=== PATIENT | male | born 1945 | race Caucasian/White ===

== ENCOUNTER 2016-09-26 03:41 | Emergency (ER) | payer MEDICARE ==
[~2016-09-26] VITALS: Ht 182.9 cm; Wt 90.9 kg
[~2016-09-26 03:41] MED LIST: ACET1TAB12 PO; ASP81TEC PO; ATOR20TA PO; CLOP75TA28 PO; LISI-610 PO; METO-272 PO
[2016-09-26 03:47] VITALS: BP 187/109; PULSE 74; RESP 20; O2SAT 100
--- NOTE | 2016-09-26 04:06 | ED.REPORT ---
HPI-Sore Throat ONLY HPI/PE done Sep 26, 2016 ED Provider: Doc,Ed MD The patient is a 70 year old male who presents to the ED complaining of throat swelling which woke him from sleep 30 minutes [employer]. He describes the feeling as if his uvula was swollen and blocking his throat. He takes Lisinopril for hypertension. Associated symptom of tongue swelling. Since onset he reports that his mouth has become dry. He recently finished a course of antibiotics. He denies any other symptoms at this time. Nursing Notes Stated Complaint: SORE THROAT Chief Complaint: General Complaint Nursing Notes Reviewed: Yes Allergies: Coded Allergies: Penicillins (Verified Allergy, Unknown, 09/26/16) Scheduled Aspirin-Expunged Drug, Do Not Renew! (Aspirin EC-Expunged Drug, Do Not Renew!) 81 Mg Tablet 81 MG PO DAILY Atorvastatin (Lipitor) 20 Mg Tablet 40 MG PO HS Clopidogrel (Clopidogrel) 75 Mg Tablet 75 MG PO DAILY Lisinopril (Zestril) 10 Mg Tablet 10 MG PO BID Metoprolol Succinate ER (Metoprolol Succinate ER) 50 Mg Tab.er.24h 25 MG PO DAILY Prednisone (PredniSONE) 20 Mg Tablet 20 MG PO TID Scheduled PRN Acetaminophen/Codeine 300-30mg (Tylenol/Codeine #3) 1 Each Tablet 1 EACH PO every 4-6 hours prn PRN PRN For Pain General Time Seen by MD: 04:05 Chief Complaint Other (Throat/tongue) Hx Obtained From: Patient, Spouse Arrived By: Walk-in Onset Occurred: 16 - 30 minutes ago Symptom Duration: Since onset Severity: Current: No pain currently Severity: Maximum: No pain Recent Healthcare: No recent doctor visit, No recent hospitalization Similar Sx Previous: No Past Medical History Past Medical History None reported Past Surgical History None reported Smoking History Never Smoker Social History Alcohol Use: "Social" Drug Use: Denies drug use Review of Systems Constitutional: Denies: Chills, Fever Ears / Nose / Throat: Reports: Throat swelling, Tongue swelling, Denies: Sore throat, Throat pain Respiratory: Denies: Non-productive cough, Shortness of breath, Wheezing GI: Denies: Abdominal pain, Nausea, Vomiting Complete sys rev & neg: except as marked. Physical Exam Initial Vital Signs Vital Signs (First) Date Time Temp Pulse Resp B/P Pulse Ox O2 Delivery O2 Flow Rate FiO2 09/26/16 03:47 36.6 74 20 187/109 100 Room Air Initial VS: Reviewed, Vital signs abnormal Head / Eyes: Atraumatic, Normocephalic, PERRL Respiratory: Breath sounds normal, Clear to auscultation, No respiratory distress Cardiovascular: Regular rate & rhythm, Heart sounds normal, Intact distal pulses Abdomen / GI: Soft, Non-tender, No guarding, No rebound, No distention Back: No CVA tenderness Extremities: Vascular intact, Neuro intact, No swelling, No tenderness Skin: Warm, Dry, No cyanosis Neurologic: Alert, Oriented, Nonfocal Psychiatric: Mood/affect normal, Behavior normal, Normal thought content General/Constitutional: Awake, Alert, No acute distress, Well appearing ENT: Atraumatic Mouth: Positive: Mucous membranes dry, Tongue abnormal (mild swelling) Neck: Atraumatic, Supple, Full range of motion Interpretation & Diagnostics Lab Results Interpretation Test 09/26/16 04:10 Hold Purple Top Tube Received (Received) Hold Blue Top Tube Received (Received) Hold [place] Top Tube Received (Received) Hold [place] Top Tube Received (Received) Re-Eval/Medical Decision Med Decision/Clinical Course 70-year-old male with swelling in his throat and tongue consistent with angioedema likely secondary to lisinopril. I doubt that this is a sulfa allergy given the timing. He improved some with prednisone and 26 Benadryl. We will continue him on these medicines for 3 days. He was instructed not to use his lisinopril. Follow-up with primary doctor. Source of Hx: Old records Re-Evaluation/Progress : Time of Eval: 06:06 Re-Evaluation/Progress Note: Rechecked the patient. Discussed diagnosis and plan for discharge. Follow-up instructions and RTER warnings given. The patient understands and agrees to the plan. All questions addressed. Counseled Regarding: Diagnosis, Lab results, Need for follow-up, When/why to return to ED Discharge & Departure Primary Impression: Angioedema Encounter type: initial encounter Qualified Code: T78.3XXA - Angioneurotic edema, initial encounter Disposition: Home Discharge Condition All VS Reviewed: Yes Condition: Stable Additional Instructions: The symptoms are most likely angioedema, and allergic reaction, common with lisinopril. Do not take more lisinopril. Benadryl 25-50 mg 3-4 times daily. Prednisone 20 mg by mouth 3 times a day, #9 prescription written. Referrals: Kailash Moody MD (PCP) Scribe Attestation Portions of this note were transcribed by Johnathon Kelley. I, Dr. Carranza, personally performed the history, physical exam and medical decision-making; I reviewed and confirmed the accuracy of the information in the transcribed note. Signed by: Luly Valdes, 09/26/16 06:06. copies to: Kailash Moody MD, Howard L MD Sep 26, 2016 04:06 JOHNATHON KELLEY Sep 26, 2016 04:41
[2016-09-26] MEDS ORDERED: MethylprednisoLONE Sodium Succinate 62.5 mg/mL 2 mL Inj IVPUSH ONE (04:35)
[2016-09-26] MEDS ORDERED: PRE20 PO (07:16)
[2016-09-26 07:37] VITALS: BP 156/95; PULSE 63; RESP 16; O2SAT 93
== END 2016-09-26 07:35 | disposition home or self-care (01) ==
LOC: SED 03:41
DX: T78.3XXA Angioneurotic edema, initial encounter (principal); X58.XXXA Exposure to other specified factors, initial encounter; Y93.9 Activity, unspecified; Y92.9 Unspecified place or not applicable; Y99.8 Other external cause status; Z88.0 Allergy status to penicillin
CPT/HCPCS: 96374; 96375; 99284; J1200; J2930

== ENCOUNTER 2017-04-07 05:48 | Day surgery (SDC) | payer MEDICARE ==
[~2017-04-07] VITALS: Ht 180.3 cm; Wt 96.4 kg
[~2017-04-07 05:48] MED LIST changes: -ACET1TAB12 PO; +AMLO5TAB2 PO; -ASP81TEC PO; -ATOR20TA PO; +ATRV10T PO; +BENZ100C8 PO; +CARV12.52 PO; +ECON15CR10 TOP; +EVOL140P SQ; +KETO120S3 TP; -LISI-610 PO; -METO-272 PO; +NITR0.4T SL; +acetaminophen pm
[2017-04-07] MEDS ORDERED: fentaNYL-PF 50 mCg/mL 2 mL Inj ONE (05:49)
[2017-04-07 06:38] VITALS: BP 133/78; PULSE 67; RESP 16; O2SAT 94
[2017-04-07] MEDS ORDERED: DIPH25CA6 PO (06:44)
[2017-04-07] MEDS: Lactated Ringer's 1,000 ML IV SCH ×2 (06:57→07:19)
[2017-04-07] MEDS ORDERED: Lactated Ringer's 500 ML IV PRN (07:16)
[2017-04-07] MEDS ORDERED: Lactated Ringer's 1,000 ML IV SCH (07:16)
--- NOTE | 2017-04-07 07:16 | PCM.HPANE ---
Patient Data Date of Service: Apr 07, 2017 Surgeon Admitting Provider: Attending Provider:Gulshan Mccain DO Primary Care Physician:Catalina Duron Other Provider:Christa Luong Anesthesia Reason for Visit Right Carpal Tunnel Syndrome Ht/WT & BMI Height (Feet): 5 Height (Inches): 11 Weight (Kilograms): 96.4 Body Mass Index 29.00 Allergies Coded Allergies: Penicillins (Verified Allergy, Unknown, rash, 04/06/17) lisinopril (Verified Allergy, Unknown, angio edema, 04/05/17) atenolol (Verified Adverse Reaction, Mild, not effective, 04/06/17) Uncoded Allergies: STATINS (Allergy, Unknown, muscular pain, 04/05/17) Past Anesthesia History Anesthesia History: Denies:: Abnormal Airway, Anesthesia Reactions, Difficult Intubation, Fam Anesthesia Reaction, Fam Malignant Hypertherm, Malignant Hyperthermia Diabetes History Hx Diabetes?: No MRSA MRSA: No Medications Blood Thinner: Plavix Hypertension Medication: Yes Home Meds Incl Beta Ayaz: Yes Date Beta Ayaz Taken: Apr 07, 2017 Time Beta Ayaz Taken: 05:30 Reported Medications diphenhydrAMINE HCl (Benadryl)25 Mg Ywesmie25 Mg PO HS PRN Ref 0 04/07/17 Evolocumab (Repatha Sureclick)140 Mg/Ml Pen. Mg SQ [id number] 04/05/17 Nitroglycerin SL (Nitrostat)0.4 Mg Tab.subl0.4 Mg SL Q5MIN PRN For Chest Pain # 1 BOTTLE 04/05/17 Clopidogrel 75 Mg Llurdq26 Mg PO DAILY Ref 0 04/05/17 Carvedilol 12.5 Mg Affvrn14.5 Mg PO BID Ref 0 04/05/17 Atorvastatin (Lipitor)10 Mg Tab10 Mg PO DAILY Ref 0 04/05/17 Amlodipine 5 Mg Tablet5 Mg PO DAILY Ref 0 04/05/17 [acetaminophen pm] No Conflict Check1 Tab HS 04/05/17 Discontinued Reported Medications Ketoconazole 120 Ml Gnfwxyn238 Ml TP 04/05/17 Econazole Nitrate 15 Gm Cream..g.1 Appl TOP BID #1 TUBE 04/05/17 Benzonatate 100 Mg Gqablhb846 Mg PO PRN For Congestion 04/05/17 Aspirin-Expunged Drug, Do Not Renew! (Aspirin EC-Expunged Drug, Do Not Renew!) 81 Mg Xlnclf12 Mg PO DAILY Ref 0 07/18/09 Discontinued Scripts Prednisone (PredniSONE)20 Mg Iifjwv52 Mg PO TID #9 TABLET Prov:Bj Carranza MD 09/26/16 Acetaminophen/Codeine 300-30mg (Tylenol/Codeine #3)1 Each Tablet1 Each PO every 4-6 hours prn PRN For Pain #20 TABLET Prov:Lety Cooper 12/19/13 Metoprolol Succinate ER 50 Mg Tab.er.24h25 Mg PO DAILY #30 TABLET Ref 0 Prov:Lety Cooper 12/19/13 Atorvastatin (Lipitor)20 Mg Grjjvg64 Mg PO HS 90 Days Prov:Lety Cooper 12/19/13 Clopidogrel 75 Mg Rukwkx35 Mg PO DAILY 90 Days Prov:Lety Cooper 12/19/13 Lisinopril (Zestril)10 Mg Xyldee06 Mg PO BID #60 TABLET Prov:Lety Cooper 12/19/13 History History of ENT Problems?: No HEENT History: Positive for:: Hearing Problem (wears as needed only) Denies:: Abnormal Airway Cataracts Difficult Intubation Dysphagia Glaucoma Sinus Problem TMJ Denture Type: None Teeth Condition: Within Normal Limits Hx of Heart Problems?: Yes Cardiovascular History: Positive for:: Cardiac Surgery (NELLY placment ) Chest Pain (hx of stemi/ heart attack) Coronary Artery Disease Hypertension Denies:: Edema Heart Murmur Irregular Heartbeat Pacemaker Thrombophlebitis Hx of Respiratory Problem?: Yes Respiratory History: Positive for:: Use of C-PAP Machine Denies:: Asthma COPD Emphysema Pneumonia Tuberculosis Use of Inhalers / NEBS Hx Neurologic Problems?: No Neurological History: Denies:: CVA Headaches Multiple Sclerosis Parkinson's Disease Seizures Hx of GI Problems?: Yes Hx of Problems?: No Genitourinary History: Denies:: Kidney Stones Urinary Tract Infection Male Hx: Denies:: Prostate Problems Scrotal Mass Testicular Surgery Skin History: Denies:: History Skin Disorders? Pressure Ulcers Hx Musculoskeletal Problems?: Yes Musculoskeletal History: Positive for:: Degenerative Joint Musculoskeletal Trauma (right carpal tunnel current admissionproblem) Osteoarthritis (knees, hands) Denies:: Back Injury Fibromyalgia Joint Replacement Systemic Lupus Hx of Psycho/Social Problems?: No Psycho Social History: Denies:: Anxiety Hx Depression Hx Surgeries?: Yes (stents, rodney RCR) Hx Any Other Health Problems?: Yes Other History: Positive for:: Hospitalization Denies:: Cancer Endocrine Disease Thyroid Disease History Blood Transfusions: Denies:: Blood Transfusions Hx Diabetes: No Hx Alcohol Use: Yes (glass of wine every other day)Hx Substance Use: No Smoking Status: Never Smoker Have You Smoked inLast 12 mo: No Stop/Bang P-Blood Pressure: treated: Yes B- Body Mass Index > 35 kg/m2: Yes A- Age over 50: Yes N- Neck Large Circumference: No G- Gender Male: Yes MARÍA Risk Assessment: High Risk, =/>3 Yes Risk Assessment Category Category 1A: Patient has history of documented sleep apnea, and HAS NOT received any narcotic, sedative or anesthesia administration during this stay. Category 1B: Patient has history of documented sleep apnea, and HAS received any narcotic , sedative or anesthesia administration during this stay Category 2: Patient has SUSPECTED Obstructive Sleep Apnea, and HAS received any narcotic , sedative or anesthesia administration during this stay. Category 3: Patient has SUSPECTED Obstructive Sleep Apnea and HAS NOT received narcotic, sedative or anesthesia administration during this stay. Category 4: Outpatient in Procedural Areas with known sleep apnea or who screen positive for High Risk via the STOP/BANG questionnaire. Exam Exam Vital Signs Vital Signs Date Time Temp Pulse Resp B/P Pulse Ox O2 Delivery O2 Flow Rate FiO2 04/07/17 06:38 36.7 67 16 133/78 94 Room Air General Appearance: Alert, Oriented X3, Cooperative, No Acute Distress HEENT/AIRWAY: MP 2 Lungs: Normal Air Movement Heart: Exam Unremarkable Meds/Labs/Diagnostics Admission Meds Current Medications Lactated Ringer's (Lr) 1,000 ml @ 120 mls/hr Q8H20M IV Last administered on t 06:57; Start 04/07/17 at 05:00; Stop 04/07/17 at 13:19 Plan Impression Patient chart reviewed, patient interviewed and anesthestic plan with risks, benefits, and alternatives discussed, and informed consent obtained. NPO per Anesth. Guidelines: Yes ASA Physical Status: ASA3 Severe Disease (CAD) Anesthetic Plan: Regional Block Bene/Risks/Altern/Consents: Yes HP Complete Prior to Induction: Yes Neptali Verde MD Apr 07, 2017 07:02
[2017-04-07] MEDS ORDERED: EPHEDrine Sulfate 50 mg/mL Inj IVPUSH PRN (07:20)
[2017-04-07] MEDS ORDERED: Phenylephrine 10,000 mCg/mL Inj IVPUSH PRN (07:20)
[2017-04-07] MEDS ORDERED: HYDROcodone-APAP 5-325 mg Tablet PO PRN (07:20)
[2017-04-07] MEDS ORDERED: MetoCLOpramide 5 mg/mL 2 mL Inj IVPUSH PRN (07:20)
[2017-04-07] MEDS ORDERED: fentaNYL-PF 50 mCg/mL 2 mL Inj IVPUSH PRN (07:20)
[2017-04-07] MEDS ORDERED: Ondansetron 2 mg/mL 2 mL Inj IVPUSH PRN (07:20)
[2017-04-07] MEDS ORDERED: Atropine 0.4 mg/mL Inj IVPUSH PRN (07:20)
[2017-04-07] MEDS ORDERED: Labetalol 5 mg/mL 4 mL Inj IV PRN (07:20)
[2017-04-07] MEDS ORDERED: HYDROmorphone 1 mg/mL Inj IVPUSH PRN (07:20)
[2017-04-07] MEDS ORDERED: Dexamethasone 4 mg/mL Inj IVPUSH PRN (07:20)
[2017-04-07] MEDS ORDERED: Lidocaine 1%-Epi 1:100,000 10 mL Inj INFILTRATE ONE (07:44)
[2017-04-07 07:54] VITALS: BP 131/80; PULSE 74; RESP 16; O2SAT 94
--- NOTE | 2017-04-07 08:03 | PCM.ANEP1 ---
Post Anesthesia PACU Phase 1 Assessment Date of Service: Apr 07, 2017 Vital Signs Vital Signs Date Time Temp Pulse Resp B/P Pulse Ox O2 Delivery O2 Flow Rate FiO2 04/07/17 07:54 36.2 74 16 131/80 94 Room Air 04/07/17 06:38 36.7 67 16 133/78 94 Room Air Anesthetic Administered: Regional Block Level of Alertness: Awake, talking RICE's with Equal Strength: Yes Pain: No Nausea or Vomiting: No CV Function & Hydration Stable: Yes Airway Device: Oxygen Delivery: Room Air Lungs: Normal Air Movement Dermatome Level: Full Sensation PACU Phase 2 Assessment Complications: No Follow up Care: N/A Patient Instructions Provided: N/A Neptali Verde MD Apr 07, 2017 08:03
[2017-04-07 08:23] VITALS: BP 145/74; PULSE 64; RESP 16; O2SAT 96
--- NOTE | 2017-04-07 08:54 | OP ---
[address] [address] OPERATIVE REPORT PATIENT: FINA BARRAZA : 1945 MR#: [id number] ADMIT: 04/07/2017 JOB ID: [id number] DATE OF SURGERY: 04/07/2017 PREOPERATIVE DIAGNOSIS(ES): Right carpal tunnel syndrome. POSTOPERATIVE DIAGNOSIS(ES): Right carpal tunnel syndrome. PROCEDURE: Right open carpal tunnel release. SURGEON: Gulshan Mccain DO. ANESTHESIA: Meggett block. BRIEF HISTORY: The patient is a pleasant 71-year-old male with longstanding history of bilateral hand pain and paresthesias who presented with electrodiagnostic findings of moderate to severe carpal tunnel syndrome with failure of previous conservative treatment. We discussed proceeding with a carpal tunnel release as his right side was the most severe and symptomatic. We discussed proceeding with surgery on the right side first. He understood the risks include, but not limited to, neurovascular injury, tendon injury, infection, failure to resolve the patient's preoperative symptoms, stiffness, persistent pain all of which may require further intervention. The patient had all questions answered. Consent was signed and placed in the chart. PROCEDURE IN DETAIL: The patient was brought to the operative suite and placed supine on the operative table. Surgical time-out was performed. Everyone in the room was in agreement. After appropriate anesthesia was obtained, the right arm was then prepped and draped in a sterile fashion. A 2 cm longitudinal incision was made in line with the radial aspect of the ring finger. The ulnar aspect of the palmaris longus. The incision was kept distal to the wrist crease and proximal to Torres cardinal line. Subcutaneous tissues were dissected with bipolar electrocautery and utilized to maintain hemostasis throughout the procedure. The palmar fascia was next identified and incised longitudinally followed by exposure of the underlying transverse carpal ligament. The transverse carpal ligament was then released in its entirety to include the distal extent of the antebrachial fascia. Copious irrigation was then performed followed by closure of the skin with 5-0 nylon in a simple interrupted fashion. The patient was then placed into a bulky soft dressing. ESTIMATED BLOOD LOSS: Less than 1 cc. COMPLICATIONS: None. DISPOSITION: The patient tolerated the procedure well. Anesthesia was reversed. The patient was transferred to the PACU for recovery. POSTOPERATIVE PLAN: The patient follow up in the office in two weeks. I will remove the patient's sutures at that time, start working on range of motion and scar mobilization.
== END 2017-04-07 23:59 | disposition home or self-care (01) ==
LOC: SAS 05:48
PROVIDERS: ATTEND Orthopaedic Surgery
DX: G56.01 Carpal tunnel syndrome, right upper limb (principal); I10 Essential (primary) hypertension; I25.10 Atherosclerotic heart disease of native coronary artery without angina pectoris; Z79.899 Other long term (current) drug therapy; Z88.0 Allergy status to penicillin; Z88.8 Allergy status to other drugs, medicaments and biological substances
CPT/HCPCS: 64721; 76942; J2250; J3010; J7120

== ENCOUNTER → 2017-06-02 | Day surgery (SDC) | payer MEDICARE ==
[~2017-06-02] VITALS: Ht 180.3 cm; Wt 95.8 kg
[~2017-06-02] MED LIST changes: +ACET-2605 PO; -BENZ100C8 PO; +Dexamethasone 4 mg/mL Inj IVPUSH PRN; -ECON15CR10 TOP; +EPHEDrine Sulfate 50 mg/mL Inj IVPUSH PRN; -EVOL140P SQ; +EVOL140S SQ; +HYDROcodone-APAP 5-325 mg Tablet PO PRN; +HYDROmorphone 1 mg/mL Inj IVPUSH PRN; -KETO120S3 TP; +Lactated Ringer's 1,000 ML IV ONE; +Lactated Ringer's 1,000 ML IV SCH; +Lactated Ringer's 500 ML IV PRN; +Lidocaine 1%-Epi 1:100,000 20 mL Inj INFILTRATE ONE; +MetoCLOpramide 5 mg/mL 2 mL Inj IVPUSH PRN; +NITR0.3T6 SL; -NITR0.4T SL; +Ondansetron 2 mg/mL 2 mL Inj ONE; +Phenylephrine 10,000 mCg/mL Inj IVPUSH PRN; +Propofol 10,000 mCg/mL 20 mL Inj ONE; -acetaminophen pm; +fentaNYL-PF 50 mCg/mL 2 mL Inj IVPUSH PRN; +fentaNYL-PF 50 mCg/mL 2 mL Inj ONE
[2017-06-02 06:49] VITALS: BP 138/75; PULSE 60; RESP 16; O2SAT 95
--- NOTE | 2017-06-02 07:19 | PCM.HPANE ---
Patient Data Surgeon Admitting Provider: Attending Provider:Gulshan Mccain DO Primary Care Physician:Catalina Duron Other Provider:Christa Luong Anesthesia Reason for Visit Left Carpal Tunnel Syndrome Ht/WT & BMI Height (Feet): 5 Height (Inches): 11 Weight (Kilograms): 95.8 Body Mass Index 29.00 Allergies Coded Allergies: Penicillins (Verified Allergy, Unknown, rash, 05/30/17) lisinopril (Verified Allergy, Unknown, angio edema, 05/30/17) atenolol (Verified Adverse Reaction, Mild, not effective, 05/30/17) Uncoded Allergies: STATINS (Allergy, Unknown, muscular pain, 04/05/17) Past Anesthesia History Anesthesia History: Denies:: Abnormal Airway, Anesthesia Reactions, Difficult Intubation, Fam Anesthesia Reaction, Fam Malignant Hypertherm, Malignant Hyperthermia Diabetes History Hx Diabetes?: No MRSA MRSA: No Medications Blood Thinner: Plavix Last Dose Blood Thinner: May 30, 2017 Hypertension Medication: Yes (Carvedilol) Home Meds Incl Beta Ayaz: Yes Date Beta Ayaz Taken: Jun 02, 2017 Time Beta Ayaz Taken: 0500 Reported Medications Evolocumab (Repatha Syringe)140 Mg/Ml Ebioakl747 Mg SQ monthly 05/30/17 Nitroglycerin 0.3 Mg Tab.subl0.3 Mg SL DIRECTED PRN For Chest Pain 05/30/17 Clopidogrel 75 Mg Wwltii87 Mg PO DAILY Ref 0 05/30/17 Carvedilol 12.5 Mg Spbiqk97.5 Mg PO BID Ref 0 05/30/17 Atorvastatin (Lipitor)10 Mg Tab10 Mg PO DAILY Ref 0 05/30/17 Amlodipine 5 Mg Tablet5 Mg PO DAILY Ref 0 05/30/17 Acetaminophen/Diphenhydramine (Tylenol Pm Ex-Strength Caplet)500 Mg-25 Mg Tablet1 Each PO 05/30/17 Discontinued Reported Medications diphenhydrAMINE HCl (Benadryl)25 Mg Shuvvtg14 Mg PO HS PRN Ref 0 04/07/17 Evolocumab (Repatha Sureclick)140 Mg/Ml Pen.fennjg679 Mg SQ o4omqaz 04/05/17 Nitroglycerin SL (Nitrostat)0.4 Mg Tab.subl0.4 Mg SL Q5MIN PRN For Chest Pain # 1 BOTTLE 04/05/17 Clopidogrel 75 Mg Ouhoog29 Mg PO DAILY Ref 0 04/05/17 Carvedilol 12.5 Mg Qvydxj83.5 Mg PO BID Ref 0 04/05/17 Atorvastatin (Lipitor)10 Mg Tab10 Mg PO DAILY Ref 0 04/05/17 Amlodipine 5 Mg Tablet5 Mg PO DAILY Ref 0 04/05/17 [acetaminophen pm] No Conflict Check1 Tab HS 04/05/17 History History of ENT Problems?: No HEENT History: Positive for:: Hearing Problem (wears as needed only) Denies:: Abnormal Airway Cataracts Difficult Intubation Dysphagia Sinus Problem TMJ Denture Type: None Teeth Condition: Within Normal Limits Hx of Heart Problems?: Yes Cardiovascular History: Positive for:: Cardiac Surgery (NELLY placment ) Chest Pain (hx of stemi/ heart attack) Coronary Artery Disease Hypertension Denies:: Atrial Fibrillation Congestive Heart Failure Edema Heart Murmur Irregular Heartbeat Pacemaker Thrombophlebitis Hx of Respiratory Problem?: Yes Respiratory History: Positive for:: Use of C-PAP Machine (no using secondary to pain in hand and arm) Denies:: Asthma COPD Cough Dyspnea Emphysema Hemoptysis Pneumonia Pulmonary Embolism Tuberculosis Hx Neurologic Problems?: No Neurological History: Denies:: Alzheimer's Disease CVA Dementia Dizziness Headaches Multiple Sclerosis Parkinson's Disease Seizures TIA Hx of GI Problems?: Yes Gastrointestinal History: Denies:: Cirrhosis Gastroesphageal Reflux Heartburn Hepatitis Liver Disease Hx of Problems?: No Genitourinary History: Denies:: HX of Hemodialysis Kidney Stones Urinary Tract Infection Male Hx: Denies:: Prostate Problems Scrotal Mass Testicular Surgery Skin History: Denies:: History Skin Disorders? Pressure Ulcers Hx Musculoskeletal Problems?: Yes Musculoskeletal History: Positive for:: Degenerative Joint Musculoskeletal Trauma (Left carpal tunnel current admission problem) Osteoarthritis Denies:: Back Injury Joint Replacement Systemic Lupus Hx of Psycho/Social Problems?: No Psycho Social History: Denies:: Anxiety Hx Depression Hx Surgeries?: Yes (stents, rodney RCR) Hx Any Other Health Problems?: Yes Other History: Positive for:: Hospitalization (2013 stent placement) Denies:: Cancer Endocrine Disease Thyroid Disease History Blood Transfusions: Positive for:: Accept Blood Products? Denies:: Blood Transfusions Hx Diabetes: No Hx Alcohol Use: Yes (glass of wine every other day)Hx Substance Use: No Smoking Status: Never Smoker Have You Smoked inLast 12 mo: No Stop/Bang Treated for Sleep Apnea?: Yes Do You Have a CPAP Machine?: Yes MARÍA Category 4 OutPt Procedure: Yes Risk Assessment Category Category 1A: Patient has history of documented sleep apnea, and HAS NOT received any narcotic, sedative or anesthesia administration during this stay. Category 1B: Patient has history of documented sleep apnea, and HAS received any narcotic , sedative or anesthesia administration during this stay Category 2: Patient has SUSPECTED Obstructive Sleep Apnea, and HAS received any narcotic , sedative or anesthesia administration during this stay. Category 3: Patient has SUSPECTED Obstructive Sleep Apnea and HAS NOT received narcotic, sedative or anesthesia administration during this stay. Category 4: Outpatient in Procedural Areas with known sleep apnea or who screen positive for High Risk via the STOP/BANG questionnaire. Exam Exam Vital Signs Vital Signs Date Time Temp Pulse Resp B/P Pulse Ox O2 Delivery O2 Flow Rate FiO2 06/02/17 06:49 36.3 60 16 138/75 95 Room Air General Appearance: Alert, Oriented X3, Cooperative, No Acute Distress HEENT/AIRWAY: MP 2 Lungs: Clear to Auscultation, Normal Air Movement Heart: Exam Unremarkable, Regular Rate/Rhythm, No Murmurs/Rubs/Gallops Meds/Labs/Diagnostics Admission Meds Current Medications Lactated Ringer's (Lr) 1,000 ml @ 120 mls/hr Q8H20M IV Last administered on t 06:55; Start 06/02/17 at 05:00; Stop 06/02/17 at 13:19 Plan Impression Patient chart reviewed, patient interviewed and anesthestic plan with risks, benefits, and alternatives discussed, and informed consent obtained. NPO per Anesth. Guidelines: Yes ASA Physical Status: ASA3 Severe Disease Anesthetic Plan: Regional Block (Lissa block) Bene/Risks/Altern/Consents: Yes HP Complete Prior to Induction: Yes Johnathon Sanchez MD Jun 02, 2017 07:18
[2017-06-02 08:15] VITALS: BP 113/61; PULSE 59; RESP 16; O2SAT 94
[2017-06-02 08:53] VITALS: BP 128/70; PULSE 63; RESP 16; O2SAT 97
--- NOTE | 2017-06-02 10:37 | PCM.ANEP1 ---
Post Anesthesia PACU Phase 1 Assessment Date of Service: Jun 02, 2017 Vital Signs Vital Signs Date Time Temp Pulse Resp B/P Pulse Ox O2 Delivery O2 Flow Rate FiO2 06/02/17 08:53 63 16 128/70 97 Room Air 06/02/17 08:15 36.1 59 16 113/61 94 Room Air 06/02/17 06:49 36.3 60 16 138/75 95 Room Air Anesthetic Administered: Regional Block Level of Alertness: Awake, talking Pain: No Nausea or Vomiting: No CV Function & Hydration Stable: Yes Airway Device: Oxygen Delivery: Room Air Lungs: Clear to Auscultation, Normal Air Movement PACU Phase 2 Assessment Complications: No Follow up Care: No Patient Instructions Provided: N/A Johnathon Sanchez MD Jun 02, 2017 10:37
--- NOTE | 2017-06-02 19:56 | OP ---
[address] [address] OPERATIVE REPORT PATIENT: FINA BARRAZA : 1945 MR#: [id number] ADMIT: 06/02/2017 JOB ID: [id number] DATE OF SURGERY: 06/02/2017 PREOPERATIVE DIAGNOSIS(ES): Left carpal tunnel syndrome. POSTOPERATIVE DIAGNOSIS(ES): Left carpal tunnel syndrome. PROCEDURE: Left open carpal tunnel release. SURGEON: Gulshan Mccain DO ANESTHESIA: Lissa block. HISTORY OF PRESENT ILLNESS: The patient is a pleasant 71-year-old male that presented to me originally with bilateral hand pain and paresthesias. He failed conservative treatment for bilateral carpal tunnel syndrome and originally underwent a right open carpal tunnel release several weeks prior. He progressed very well, with complete resolution of his symptoms to his right hand, but continued to have symptoms in regards to the left, and opted to proceed with the same surgery on the left side. He was well aware of the risks, benefits, alternatives, and indications, as he has had this same procedure performed to the right side recently. The patient had all questions answered. Consent was signed and placed in the chart. PROCEDURE IN DETAIL: The patient was brought to the operative suite and placed supine on the operating room table. Surgical time-out was performed. Everyone in the room was in agreement. After appropriate anesthesia was obtained, the left arm was then prepped and draped in sterile fashion. A 2 cm longitudinal incision was made in line with the radial aspect of the ring finger and the ulnar aspect of the palmaris longus. The incision was kept distal to the wrist crease and proximal to Torres cardinal line. Subcutaneous tissues were dissected with bipolar electrocautery utilized to maintain hemostasis throughout the procedure. The palmar fascia was first identified and incised longitudinally in line with the skin incision and followed back as far the underlying transverse carpal ligament. The transverse carpal ligament was then released in its entirety to include the distal extent of the antebrachial fascia. Copious irrigation was performed, followed by closure of the skin with 5-0 nylon in a simple interrupted fashion. The patient was then placed in a bulky soft dressing. ESTIMATED BLOOD LOSS: Less than 1 mL. COMPLICATIONS: None. DISPOSITION: The patient tolerated the procedure well. Anesthesia was reversed. The patient was transferred to the PACU for recovery. POSTOPERATIVE PLAN: The patient will follow up in my office in two weeks for suture removal and to start working on range of motion and scar mobilization.
== END | disposition home or self-care (01) ==
LOC: SAS 05:45
PROVIDERS: ATTEND Orthopaedic Surgery
DX: G56.02 Carpal tunnel syndrome, left upper limb (principal); I25.10 Atherosclerotic heart disease of native coronary artery without angina pectoris; E78.5 Hyperlipidemia, unspecified; I10 Essential (primary) hypertension; G47.33 Obstructive sleep apnea (adult) (pediatric); F32.9 Major depressive disorder, single episode, unspecified; F41.9 Anxiety disorder, unspecified; I25.2 Old myocardial infarction; Z86.73 Personal history of transient ischemic attack (TIA), and cerebral infarction without residual deficits; Z95.5 Presence of coronary angioplasty implant and graft; Z87.891 Personal history of nicotine dependence
CPT/HCPCS: 64721; J2405; J2704; J3010; J7120